=== PATIENT | male | born 1975 | race Caucasian/White ===

== ENCOUNTER → 2020-04-01 10:52 | Outpatient (CLI) | payer MEDICAID, SELFPAY ==
[2020-04-01 10:46] VITALS: BMI 33.9
--- NOTE | 2020-04-01 10:52 | RAD_ITS ---
STUDY: X-RAY - RIGHT HAND, ATTENTION THUMB REASON FOR EXAM: Male, 44 years old. CUT RIGHT THUMB ON SAW ABOUT 1 WEEK AGO. HAS STICHES ON TOP OF THUMB. HE IS FOLLOWING UP WITH ORTHO TO CHECK FOR LIGAMENT DAMAGE PER PATIENT. TECHNIQUE: 3 view(s) of the finger were obtained. COMPARISON: None. FINDINGS: Normal metacarpal head. Normal metacarpophalangeal joint. Normal proximal phalanx. Normal distal phalanx. Normal distal interphalangeal joint. Soft tissue swelling. RAD/Finger(s) Min 2 Views IMPRESSION: Soft tissue swelling. Electronically Signed: Hiro Love, at 12:48 EDT , Service support ,
== END ==
PROVIDERS: Referring Provider Orthopaedic Surgery; Visit Provider Orthopaedic Surgery
DX: S69.91XA Unspecified injury of right wrist, hand and finger(s), initial encounter (principal)
CPT/HCPCS: 73140